=== PATIENT | female | born 1950 | race Caucasian/White ===

== ENCOUNTER 2016-10-08 16:19 | Emergency (ER) | payer MEDICARE, OTHER ==
[2016-10-08] MEDS ORDERED: ONDANSETRON HCL INJ/PF 4 MG/2 ML SDV IV ONE (17:27)
--- NOTE | 2016-10-08 17:30 | ER Document Report ---
ED Medical Screen (RME) - General Chief Complaint: Abdominal Pain Stated Complaint: ABDOMINAL PAIN Time Seen by Provider: 10/08/16 17:03 Mode of Arrival: Ambulatory Information source: Patient Notes: 66-year-old female presents with complaints of nausea vomiting dark stools. Patient denies any fevers or chills admits Patient's hemoglobin is 8.9 when checked by primary care physician, she is supposed to have an EGD performed I have greeted and performed a rapid initial assessment of this patient. A comprehensive ED assessment and evaluation of the patient, analysis of test results and completion of the medical decision making process will be conducted by additional ED providers. PHYSICAL EXAMINATION: GENERAL: Well-appearing, well-nourished and in no acute distress. HEAD: Atraumatic, normocephalic. EYES: Pupils equal round extraocular movements intact, conjunctiva are normal. ENT: Nares patent NECK: Normal range of motion LUNGS: No respiratory distress Musculoskeletal: Normal range of motion NEUROLOGICAL: Normal speech, normal gait. PSYCH: Normal mood, normal affect. SKIN: Warm, Dry, normal turgor, no rashes or lesions noted. TRAVEL OUTSIDE OF THE [place] IN LAST 30 DAYS: No - Related Data Allergies/Adverse Reactions: iv contrast Allergy (Uncoded 10/08/16 17:02) Past Medical History - Social History Chew tobacco use (# tins/day): No Frequency of alcohol use: None Drug Abuse: None Renal/ Medical History: Denies: Hx Peritoneal Dialysis Musculoskeltal Medical History: Reports Hx Arthritis Past Surgical History: Reports: Hx Abdominal Surgery - gastric bypass, Hx Cholecystectomy, Hx Hysterectomy, Hx Orthopedic Surgery Physical Exam - Vital signs Vitals: Temp Pulse Resp BP Pulse Ox 99 F 82 18 132/69 H 99 10/08/16 16:54 10/08/16 16:54 10/08/16 16:54 10/08/16 16:54 10/08/16 16:54 Course - Vital Signs Vital signs: Temp Pulse Resp BP Pulse Ox 99 F 82 18 132/69 H 99 10/08/16 16:54 10/08/16 16:54 10/08/16 16:54 10/08/16 16:54 10/08/16 16:54
[2016-10-08] MEDS ORDERED: NORMAL SALINE 1000 ML 1,000 ML IV ONE (18:33)
[2016-10-08] MEDS ORDERED: KETOROLAC TROMETHAMINE INJ/PF 30 MG/1 ML SDV IV ONE (18:33)
[2016-10-08 18:45] LABS: ABSOLUTE BASOPHILS # (AUTO) 0.1 10^3/uL (0.0-0.2); ABSOLUTE EOSINOPHILS # (AUTO) 0.2 10^3/uL (0.0-0.6); ABSOLUTE LYMPHOCYTES (AUTO) 1.7 10^3/uL (0.5-4.7); ABSOLUTE MONOCYTES (AUTO) 0.4 10^3/uL (0.1-1.4); ABSOLUTE NEUT (AUTO) 4.8 10^3/uL (1.7-8.2); BASOPHILS % (AUTO) 0.9 % (0-2); EOSINOPHILS % (AUTO) 2.7 % (0-6); HEMATOCRIT 27.1 % (36.0-47.0); HEMOGLOBIN 8.5 g/dL (12.0-15.5); HGB HCT DIFFERENCE -1.6; LYMPHOCYTES % (AUTO) 23.2 % (13-45); MEAN CORPUSCULAR HEMOGLOBIN 22.4 pg (27.0-33.4); MEAN CORPUSCULAR HGB CONC 31.2 g/dL (32.0-36.0); MEAN CORPUSCULAR VOLUME 72 fl (80-97); RED BLOOD COUNT 3.78 10^6/uL (3.72-5.28); RED CELL DISTRIBUTION WIDTH 17.1 % (11.5-14.0); SEGMENTED NEUTROPHILS % (AUTO) 67.2 % (42-78); WHITE BLOOD COUNT 7.2 10^3/uL (4.0-10.5)
[2016-10-08 19:03] LABS: ALANINE AMINOTRANSFERASE 29 U/L (9-52); ALBUMIN 3.6 g/dL (3.5-5.0); ALKALINE PHOSPHATASE 100 U/L (38-126); ANION GAP 6 (5-19); ASPARTATE AMINO TRANSFERASE 32 U/L (14-36); BILIRUBIN,DIRECT 0.3 mg/dL (0.0-0.4); BILIRUBIN,TOTAL 0.4 mg/dL (0.2-1.3); BLOOD UREA NITROGEN 8 mg/dL (7-20); CALCIUM 9.5 mg/dL (8.4-10.2); CARBON DIOXIDE 26 mmol/L (22-30); CHLORIDE 102 mmol/L (98-107); CREATININE RESULT 0.64 mg/dL (0.52-1.25); GLUCOSE 95 mg/dL (75-110); LIPASE 86.6 U/L (23-300); POTASSIUM 4.2 mmol/L (3.6-5.0); SODIUM 134.3 mmol/L (137-145); TOTAL PROTEIN 6.3 g/dL (6.3-8.2)
[2016-10-08] MEDS ORDERED: PANTOPRAZOLE SODIUM 40 MG VIAL IV ONE (19:13)
--- NOTE | 2016-10-08 19:16 | ER Document Report ---
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 She states several years ago she did have a spontaneous arterial bleed at the site of the anastomosis at which time she was apparently from this event. She recently moved to the area and did see her primary care doctor Dr. Villavicencio on the of this month as well as a GI physician regarding these concerns. She has not yet been able be scheduled for an endoscopy. At time of assessment she states that she has a severe, constant, throbbing pain to the epigastrium right upper quadrant. She states eating or drinking significantly worsens the pain and she is unable to tolerate oral intake at this time secondary to the pain associated with this action. Nothing improves her symptoms. States that her stools oscillate between melena and pale stools. She has not had any hematemesis. She denies any fever. TRAVEL OUTSIDE OF THE [place] IN LAST 30 DAYS: No - Related Data Allergies/Adverse Reactions: iv contrast Allergy (Uncoded 10/08/16 17:02) Past Medical History - General Information source: Patient - Social History Smoking Status: Never Smoker Chew tobacco use (# tins/day): No Frequency of alcohol use: None Drug Abuse: None Lives with: Family Family History: Reviewed & Not Pertinent Patient has suicidal ideation: No Patient has homicidal ideation: No Renal/ Medical History: Denies: Hx Peritoneal Dialysis Musculoskeltal Medical History: Reports Hx Arthritis Past Surgical History: Reports: Hx Abdominal Surgery - gastric bypass, Hx Cholecystectomy, Hx Hysterectomy, Hx Orthopedic Surgery Review of Systems - Review of Systems Notes: Constitutional: Negative for fever. HENT: Negative for sore throat. Eyes: Negative for visual changes. Cardiovascular: Negative for chest pain. Respiratory: Negative for shortness of breath. Gastrointestinal: Positive for abdominal pain Genitourinary: Negative for dysuria. Musculoskeletal: Negative for back pain. Skin: Negative for rash. Neurological: Negative for headaches, weakness or numbness. 10 point ROS negative except as marked above and in HPI. Physical Exam - Vital signs Vitals: Temp Pulse Resp BP Pulse Ox 99 F 82 18 132/69 H 99 10/08/16 16:54 10/08/16 16:54 10/08/16 16:54 10/08/16 16:54 10/08/16 16:54 Interpretation: Normal Notes: PHYSICAL EXAMINATION: GENERAL: Appears somewhat malnourished, in moderate discomfort in no acute distress HEAD: Atraumatic, normocephalic. EYES: Pupils equal round and reactive to light, extraocular movements intact, sclera anicteric, conjunctiva are normal. ENT: nares patent, oropharynx clear without exudates. Moderately dry mucous membranes. NECK: Normal range of motion, supple without lymphadenopathy LUNGS: Breath sounds clear to auscultation bilaterally and equal. No wheezes rales or rhonchi. HEART: Regular rate and rhythm without murmurs ABDOMEN: Soft, mild tenderness to the epigastrium and right upper quadrant to palpation. No rebound or guarding. Negative Magallanes sign. Otherwise no focal tenderness. EXTREMITIES: Normal range of motion, no pitting or edema. No cyanosis. NEUROLOGICAL: No focal neurological deficits. Moves all extremities spontaneously and on command. PSYCH: Anxious, intermittently tearful. Appropriate. SKIN: Warm, Dry, normal turgor, no rashes or lesions noted. Course - Re-evaluation Re-evalutation: 10/08/16 19:15 Patient with a history of recurrent anastomotic ulcers after a gastric bypass surgery presents with melanotic stools interchanged with pale stools and a decreasing hemoglobin over the last several weeks. Hemoglobin in office on was 8.9 and has dropped to 8.5 today. Patient's baseline hemoglobin is typically around 11. She has a history of an arterial bleed at the anastomosis in the past. Her vitals are within normal limits at time of presentation. Her abdominal exam does show right upper quadrant epigastric abdominal tenderness no rebound or guarding. She does appear mildly dehydrated on examination. We do not have any GI coverage at this time nor for the remainder of September and she will require transfer for endoscopy as she is having a falling hemoglobin and has a complicated history with a gastric bypass with recurrent bleeds. I do not believe she would be safe for discharge given her decreasing hemoglobin and increasing abdominal pain as well as inability to tolerate oral intake. Will provide IV fluids, analgesia, antiemetics, and plan for transfer. 10/08/16 20:50 I have had a conversation with the accepting physician at [facility] Dr. Donovan Senior. We have discussed that although it does not appear that the patient is having a brisk upper GI bleed given that she is guaiac negative stools at this time and has not had any hematemesis, her hemoglobin is down trending and was noted to be normal in April of this year. Patient continues to have epigastric and right upper quadrant abdominal tenderness on examination but no rebound or guarding. Her vitals remain within normal limits. Her MCV does suggest acute blood loss anemia. I again reviewed the patient states she is unable to tolerate oral intake secondary to severe pain with eating or drinking and that she does have mild hyponatremia but her vitals do not suggest a severe dehydration. After reviewing this he was willing to accept patient for dehydration and dysphasia. 10/09/16 02:19 Patient has remained hemodynamically within normal limits. She continues depending to transfer to [facility]. She is continued to be n.p.o. here in the emergency department has not expressed any desire to eat or drink anything. - Vital Signs Vital signs: Temp Pulse Resp BP Pulse Ox 99.1 F 74 16 109/63 96 10/09/16 01:21 10/09/16 01:21 10/09/16 01:21 10/09/16 01:21 10/09/16 01:21 - Laboratory Result Diagrams: 10/08/16 18:20 10/08/16 18:20 Laboratory results interpreted by me: 10/08/16 10/08/16 10/08/16 18:20 18:20 19:24 Hgb 8.5 L Hct 27.1 L MCV 72 L MCH 22.4 L MCHC 31.2 L RDW 17.1 H Sodium 134.3 L Urine Ascorbic Acid 20 H Discharge - Discharge Clinical Impression: Blood loss anemia, Epigastric abdominal pain Condition: Fair Disposition: [facility]
[2016-10-08 19:51] LABS: APPEARANCE,URINE SLIGHTLY-CLOUDY; BILIRUBIN,URINE NEGATIVE (NEGATIVE); GLUCOSE, URINE NEGATIVE (NEGATIVE); KETONES,URINE NEGATIVE (NEGATIVE); LEUKOCYTE ESTERASE,URINE NEGATIVE (NEGATIVE); NITRITE,URINE NEGATIVE (NEGATIVE); PROTEIN,URINE NEGATIVE (NEGATIVE); URINE SPECIFIC GRAVITY 1.006; UROBILINOGEN,URINE NEGATIVE mg/dL (<2.0)
[2016-10-08] MEDS: MORPHINE SULFATE 10 MG/ML INJ IV PRN ×2 (19:59→21:59)
[2016-10-08] MEDS: PANTOPRAZOLE SODIUM 40 MG VIAL IV PRN (20:00)
[2016-10-08] MEDS ORDERED: DIPHENHYDRAMINE HCL 50 MG/ML VIAL ONE (22:58)
[2016-10-09] MEDS ORDERED: ONDANSETRON HCL INJ/PF 4 MG/2 ML SDV IV ONE ×3 (00:44→08:43)
[2016-10-09] MEDS: MORPHINE SULFATE 10 MG/ML INJ IV PRN ×3 (01:13→09:38)
[2016-10-09] MEDS: PANTOPRAZOLE SODIUM 40 MG VIAL IV PRN (05:02)
[2016-10-09] MEDS ORDERED: DIPHENHYDRAMINE HCL 50 MG/ML VIAL IV ONE ×2 (05:28→09:33)
[2016-10-09 09:47] VITALS: BP 125/73
== END 2016-10-09 09:49 | disposition short-term general hospital (02) ==
LOC: ER 16:19
DX: D50.0 Iron deficiency anemia secondary to blood loss (chronic) (principal); R10.13 Epigastric pain; R10.9 Unspecified abdominal pain
CPT/HCPCS: 96376; 99285; 96361; 96374; 96375; 36415; 83690; 85025; 82272; 80053; 81001; J1200 ×2; J2270 ×2; C9113 ×2; J2405 ×2; J7030; S0164

== ENCOUNTER 2017-04-30 11:01 | Emergency (ER) | payer MEDICARE, OTHER ==
[2017-04-30] MEDS ORDERED: NORMAL SALINE 1000 ML 1,000 ML IV ONE ×2 (11:25→14:22)
--- NOTE | 2017-04-30 11:25 | ER Document Report ---
ED Medical Screen (RME) - General Chief Complaint: Flank Pain Stated Complaint: ABDOMINAL PAIN Time Seen by Provider: 04/30/17 11:21 Mode of Arrival: Ambulatory Information source: Patient Notes: Patient is a 67 year old female with a history of GI problems presents to the emergency department complaining of multiple symptoms including bilateral flank pain and abdominal pain onset last night. Patient states she saw her pcp this morning due to her symptoms and was sent here for further workup. At her PCP the patients urine tested positive for leukocytes. Patient states she has had similar pain a year ago and was transferred due to a GI bleed. Patient states her abdominal pain is a 5/5. Patients associated symptoms include nausea, headaches, neck pain and burning urination. Patient states her last bowel moment was 2 days ago and normal. Patient denies hematuria. GENERAL: Alert, interacts well. No acute distress. HEAD: Normocephalic, Atraumatic. NECK: Full range of motion. Supple. Trachea midline. LUNGS: Clear to auscultation bilaterally, no wheezes, rales, or rhonchi. No respiratory distress. HEART: Regular rate and rhythm. No murmurs, gallops, or rubs. ABDOMEN: Soft, tender in the epigastric and upper quadrant area, non tender in the lower quadrants. Non-distended. EXTREMITIES: Moves all four extremities spontaneously. PSYCH: Normal affect, normal mood. I have greeted and performed a rapid initial assessment of this patient. A comprehensive ED assessment and evaluation of the patient, analysis of test results and completion of the medical decision making process will be conducted by additional ED providers. TRAVEL OUTSIDE OF THE [place] IN LAST 30 DAYS: No - Related Data Allergies/Adverse Reactions: iv contrast Allergy (Uncoded 04/30/17 11:08) Past Medical History - Social History Chew tobacco use (# tins/day): No Frequency of alcohol use: None Drug Abuse: None Renal/ Medical History: Denies: Hx Peritoneal Dialysis Musculoskeltal Medical History: Reports Hx Arthritis Past Surgical History: Reports: Hx Abdominal Surgery - gastric bypass, Hx Cholecystectomy, Hx Hysterectomy, Hx Orthopedic Surgery Physical Exam - Vital signs Vitals: Temp Pulse Resp BP Pulse Ox 98.6 F 86 18 120/60 97 04/30/17 11:10 04/30/17 11:10 04/30/17 11:10 04/30/17 11:10 04/30/17 11:10 Course - Vital Signs Vital signs: Temp Pulse Resp BP Pulse Ox 98.6 F 86 18 120/60 97 04/30/17 11:10 04/30/17 11:10 04/30/17 11:10 04/30/17 11:10 04/30/17 11:10 Scribe Documentation - Scribe Written by Gabby:: Gabby Brewer, 04/30/2017 11:34 acting as scribe for :: Wilber
[2017-04-30] MEDS ORDERED: FENTANYL CITRATE INJ/PF 100 MCG/2 ML AMPUL IV ONE ×3 (11:27→18:50)
[2017-04-30 12:04] LABS: APPEARANCE,URINE SLIGHTLY-CLOUDY; BILIRUBIN,URINE NEGATIVE (NEGATIVE); COLOR,URINE YELLOW; GLUCOSE, URINE NEGATIVE (NEGATIVE); KETONES,URINE NEGATIVE (NEGATIVE); LEUKOCYTE ESTERASE,URINE TRACE (NEGATIVE); NITRITE,URINE NEGATIVE (NEGATIVE); PROTEIN,URINE NEGATIVE (NEGATIVE); URINE SPECIFIC GRAVITY 1.012
[2017-04-30] MEDS ORDERED: ONDANSETRON HCL INJ/PF 4 MG/2 ML SDV IV ONE ×2 (12:11→14:47)
[2017-04-30 12:12] LABS: ABSOLUTE LYMPHOCYTES (AUTO) 0.8 10^3/uL (0.5-4.7); ABSOLUTE MONOCYTES (AUTO) 0.3 10^3/uL (0.1-1.4); ABSOLUTE NEUT (AUTO) 1.9 10^3/uL (1.7-8.2); BASOPHILS % (AUTO) 0.9 % (0-2); EOSINOPHILS % (AUTO) 1.3 % (0-6); HEMATOCRIT 41.9 % (36.0-47.0); HEMOGLOBIN 13.8 g/dL (12.0-15.5); LYMPHOCYTES % (AUTO) 25.1 % (13-45); MEAN CORPUSCULAR HEMOGLOBIN 30.3 pg (27.0-33.4); MEAN CORPUSCULAR VOLUME 92 fl (80-97); MONOCYTES % (AUTO) 10.5 % (3-13); PLATELET COUNT 180 10^3/uL (150-450); RED BLOOD COUNT 4.56 10^6/uL (3.72-5.28); RED CELL DISTRIBUTION WIDTH 13.4 % (11.5-14.0); SEGMENTED NEUTROPHILS % (AUTO) 62.2 % (42-78); TOTAL CELLS COUNTED % (AUTO) 100 %; WHITE BLOOD COUNT 3.1 10^3/uL (4.0-10.5)
[2017-04-30 12:29] LABS: ALANINE AMINOTRANSFERASE 668 U/L (9-52); ALBUMIN 3.9 g/dL (3.5-5.0); ALKALINE PHOSPHATASE 203 U/L (38-126); ANION GAP 8 (5-19); ASPARTATE AMINO TRANSFERASE 712 U/L (14-36); BILIRUBIN,DIRECT 0.3 mg/dL (0.0-0.4); BILIRUBIN,TOTAL 0.3 mg/dL (0.2-1.3); BLOOD UREA NITROGEN 13 mg/dL (7-20); CALCIUM 10.2 mg/dL (8.4-10.2); CARBON DIOXIDE 28 mmol/L (22-30); CHLORIDE 98 mmol/L (98-107); GLUCOSE 102 mg/dL (75-110); POTASSIUM 4.2 mmol/L (3.6-5.0); SODIUM 134.2 mmol/L (137-145); TOTAL PROTEIN 6.2 g/dL (6.3-8.2)
[2017-04-30] MEDS ORDERED: METHYLPREDNISOLONE INJ 125 MG/2 ML SDV IV ONE (13:19)
[2017-04-30] MEDS ORDERED: DIPHENHYDRAMINE HCL 50 MG/ML VIAL IV ONE (13:19)
--- NOTE | 2017-04-30 13:55 | ER Document Report ---
ED GI/ - General Chief Complaint: Flank Pain Stated Complaint: ABDOMINAL PAIN Time Seen by Provider: 04/30/17 11:21 Mode of Arrival: Ambulatory Information source: Patient Notes: 67 yo female c/o upper abdominal pain, mostly left side when palapated but felt like on the right when walked into right flank. Started yesterday but a few twinges past week, worse throughout the night. Extreme nausea. No fever or chills. Dr Baxter office sent her here. Abd. surgeries: gastric bypass 1999, sphincterotomyi Giuseppe- 2001 [facility] (liver enzymes went up at the time). This pain is similar but quicker onset as last year, HIda Scan showed ductal blockage, CBD opened up on its own (was told not candidate for ductal bypass due to gastric bypass)- [facility]. September 2016-CBD closed again -dr. rudolph [facility] when she had pain and bleeding, choledocal cyst, but opened spontaneously, no percutaneous drainage needed. Cholecystectomy 1975. . Last po' s oatmeal 4:30 am. TRAVEL OUTSIDE OF THE [place] IN LAST 30 DAYS: No - Related Data Allergies/Adverse Reactions: iv contrast Allergy (Uncoded 04/30/17 11:08) Past Medical History - General Information source: Patient - Social History Smoking Status: Never Smoker Chew tobacco use (# tins/day): No Frequency of alcohol use: None Drug Abuse: None Lives with: Spouse/Significant other Family History: Reviewed & Not Pertinent Patient has suicidal ideation: No Patient has homicidal ideation: No Renal/ Medical History: Denies: Hx Peritoneal Dialysis Musculoskeltal Medical History: Reports Hx Arthritis Past Surgical History: Reports: Hx Abdominal Surgery - gastric bypass, Hx Cholecystectomy, Hx Hysterectomy, Hx Orthopedic Surgery, Other - sphincterotomy- Giuseppe Review of Systems - Review of Systems Constitutional: No symptoms reported EENT: No symptoms reported Cardiovascular: No symptoms reported Respiratory: No symptoms reported Gastrointestinal: See HPI Genitourinary: No symptoms reported Female Genitourinary: No symptoms reported Musculoskeletal: No symptoms reported Skin: No symptoms reported Hematologic/Lymphatic: No symptoms reported Neurological/Psychological: No symptoms reported Physical Exam - Vital signs Vitals: Temp Pulse Resp BP Pulse Ox 98.6 F 86 18 120/60 97 04/30/17 11:10 04/30/17 11:10 04/30/17 11:10 04/30/17 11:10 04/30/17 11:10 Interpretation: Normal - General General appearance: Appears well, Alert In distress: None - HEENT Head: Normocephalic, Atraumatic Eyes: Normal Conjunctiva: Normal. No: Icteric Pupils: PERRL Tympanic membrane: Normal Pharynx: Normal Neck: Supple. No: Lymphadenopathy - Respiratory Respiratory status: No respiratory distress Chest status: Nontender Breath sounds: Normal Chest palpation: Normal - Cardiovascular Rhythm: Regular Heart sounds: Normal auscultation Murmur: No - Abdominal Inspection: Normal Distension: No distension Bowel sounds: Normal Tenderness: Tender Organomegaly: No organomegaly. No: Hepatomegaly, Splenomegaly - all the way across the upper abdomen - Back Back: Normal, CVA tenderness - mild right - Extremities General upper extremity: Normal inspection, Nontender, Normal color, Normal ROM , Normal temperature General lower extremity: Normal inspection, Nontender, Normal color, Normal ROM , Normal temperature, Normal weight bearing. No: Judy's sign - Neurological Neuro grossly intact: Yes Cognition: Normal Orientation: AAOx4 [place] Coma Scale Eye Opening: Spontaneous [place] Coma Scale Verbal: Oriented [place] Coma Scale Motor: Obeys Commands [place] Coma Scale Total: 15 Speech: Normal Motor strength normal: LUE, RUE, LLE, RLE Sensory: Normal - Psychological Associated symptoms: Normal affect, Normal mood - Skin Skin Temperature: Warm Skin Moisture: Dry Skin Color: Normal Skin irregularity: negative: Rash Course - Re-evaluation Re-evalutation: 04/30/17 15:40 liver enzymes elevated , lipase normal, 1+ bacteria in urine, few white cells, rocephin [address] hughes, he rec. to Call to [facility] transfer line, Dr Bray/Dariela 04/30/17 15:48 pt asking for pain medication, fentanyl worked better than the morphine. Dr. Trevino [facility] will accept the pt. to surgical bed. Will double check with dr. Gee to see if she can stay at [place] as the pt does not really want to go down to [place]. 04/30/17 16:50 Dr. 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 I will explain this to the pt. she is willing to go to [facility] via transport. 04/30/17 16:55 called transfer center back , no bed assignment yet. 04/30/17 17:35 will be going to room 236, [place] will send truck. Told pt, no pain rx needed now. 04/30/17 19:21 Patient is pain-free they are here to take her to [facility] the vitals are stable and she is on the transport stretcher. - Vital Signs Vital signs: Temp Pulse Resp BP Pulse Ox 99.1 F 75 20 110/49 L 95 04/30/17 18:55 04/30/17 18:55 04/30/17 18:55 04/30/17 18:55 04/30/17 18:55 - Laboratory Result Diagrams: 04/30/17 11:55 04/30/17 11:55 Laboratory results interpreted by me: 04/30/17 04/30/17 04/30/17 11:15 11:55 11:55 WBC 3.1 L Sodium 134.2 L AST 712 H ALT 668 H Alkaline Phosphatase 203 H Total Protein 6.2 L Urine Urobilinogen 2.0 H Ur Leukocyte Esterase TRACE H Urine Ascorbic Acid 40 H Discharge - Discharge Clinical Impression: Right flank pain, Upper abdominal pain, Liver enzyme elevation Condition: Stable Disposition: [facility] Referrals: JACKIE SARMIENTO MD [Primary Care Provider] - Follow up as needed
[2017-04-30] MEDS ORDERED: MORPHINE SULFATE 10 MG/ML INJ IV ONE (14:22)
--- NOTE | 2017-04-30 14:22 | RADIOLOGY REPORT (SQ) ---
EXAM DESCRIPTION: CHEST PA/LAT COMPLETED DATE/TIME: 04/30/2017 1:55 pm REASON FOR STUDY: cough/congestion COMPARISON: None. EXAM PARAMETERS: NUMBER OF VIEWS: two views TECHNIQUE: Digital Frontal and Lateral radiographic views of the chest acquired. RADIATION DOSE: NA LIMITATIONS: none FINDINGS: LUNGS AND PLEURA: There is mild hyperexpansion of the lungs with no infiltrate or effusion . There is no mass. MEDIASTINUM AND HILAR STRUCTURES: No masses or contour abnormalities. HEART AND VASCULAR STRUCTURES: Heart normal size. No evidence for failure. BONES: No acute findings. HARDWARE: None in the chest. OTHER: No other significant finding. IMPRESSION: Mild chronic lung changes with no acute cardiopulmonary disease. TECHNICAL DOCUMENTATION: JOB ID: [id number]- All Rights Reserved Reading location - IP/workstation name: [email or web address]
--- NOTE | 2017-04-30 14:32 | RADIOLOGY REPORT (SQ) ---
EXAM DESCRIPTION: CT ABD/PELVIS WITH IV ONLY COMPLETED DATE/TIME: 04/30/2017 2:17 pm REASON FOR STUDY: flank/epigastric pain COMPARISON: None. TECHNIQUE: CT scan of the abdomen and pelvis performed using helical scanning technique with dynamic intravenous contrast injection. No oral contrast. Images reviewed with lung, soft tissue, and bone windows. Reconstructed coronal and sagittal MPR images reviewed. Delayed images for evaluation of the urinary system also acquired. All images stored on PACS. All CT scanners at this facility use dose modulation, iterative reconstruction, and/or weight based d osing when appropriate to reduce radiation dose to as low as reasonably achievable (ALARA). [facility]: Dose Right [facility]: CareDose [facility]: Dose Right [facility]: Teradose 4D [facility]: [employer]oft CONTRAST TYPE AND DOSE: contrast/concentration: Isovue 370.00 mg/ml; Total Contrast Delivered: 68.0 ml; Total Saline Delivered: 65.0 ml RENAL FUNCTION: BUN 13 creatinine 0.76 RADIATION DOSE: CT Rad equipment meets quality standard of care and radiation dose reduction techniq ues were employed. CTDIvol: 5.7 - 7.4 mGy. DLP: 654 mGy-cm.. LIMITATIONS: None. FINDINGS: LOWER CHEST: No significant findings. No nodules or infiltrates. LIVER: Normal size. No masses. Central hepatic and common bile ductal prominence. SPLEEN: Normal size. No focal lesions. PANCREAS: No masses. No significant calcifications. No adjacent inflammation or peripancreatic fluid collections. Pancreatic duct not dilated. GALLBLADDER: Surgically absent. ADRENAL GLANDS: No significant masses or asymmetry. RIGHT KIDNEY AND URETER: No solid masses. No significant calcifications. No hydronephrosis or hyd roureter. LEFT KIDNEY AND URETER: No solid masses. No significant calcifications. No hydronephrosis or hydr oureter. AORTA AND VESSELS: No aneurysm. No dissection. Renal arteries, SMA, celiac without stenosis. RETROPERITONEUM: No retroperitoneal adenopathy, hemorrhage or masses. BOWEL AND PERITONEAL CAVITY: Surgical suture is present in the stomach. No bowel masses are seen. T here is considerable large bowel gas and some some small bowel gas. There is large amount of stool i n the rectum. APPENDIX: Not identified. No pericecal inflammatory changes are seen. PELVIS: Urinary bladder is normal. Uterus is absent. ABDOMINAL WALL: No masses. No hernias. BONES: No significant or acute findings. OTHER: No other significant finding. IMPRESSION: 1. Prominence of the bile ducts likely secondary to the cholecystectomy. 2. Possible constipation. TECHNICAL DOCUMENTATION: JOB ID: [id number] Quality ID # [id number]: Final reports with documentation of one or more dose reduction techniques (e.g., Au tomated exposure control, adjustment of the mA and/or kV according to patient size, use of iterative reconstruction technique) 2010 [employer]- All Rights Reserved Reading location - IP/workstation name: [email or web address]
[2017-04-30] MEDS ORDERED: CEFTRIAXONE INJ 1000 MG VIAL IV ONE (15:13)
[2017-04-30 18:57] VITALS: BP 110/49
== END 2017-04-30 19:14 | disposition short-term general hospital (02) ==
LOC: ER 11:01
DX: R10.9 Unspecified abdominal pain (principal); R10.10 Upper abdominal pain, unspecified; R74.8 Abnormal levels of other serum enzymes; R11.0 Nausea; Z98.84 Bariatric surgery status; Z90.49 Acquired absence of other specified parts of digestive tract
CPT/HCPCS: 96376; 99285; 96361; 96375; 96365; 36415; 87086; 83690; 85025; 87088; 80053; 81001; 87186; 71046; 74177; J1200; J3010; J2930; J2270; J0696; J2405; J7030

== ENCOUNTER 2018-01-25 01:03 | Emergency (ER) | payer OTHER, MEDICARE ==
[2018-01-25 01:10] VITALS: BP 149/89
--- NOTE | 2018-01-25 01:38 | ER Document Report ---
ED Fall - General Chief Complaint: Knee Pain Stated Complaint: FALL Time Seen by Provider: 01/25/18 01:18 Notes: Patient is a 67-year-old female that comes to the [facility] for chief complaint of a fall. She was at work, she states that she tripped on a electrical cord attached to a nearby machine which caused her to fall forwards, she landed on both knees and also hit her head on the ground causing swelling and bruising to the right side of her face just above her right eye. She states that she was dazed but she did not pass out, she denies vomiting, she states that she has had some trouble with word finding since the injury however. Injury happened this evening. She is not on a blood thinner. She does have a history of knee surgery, she reports pain in both knees over the front. She also admits to pain in her neck, right shoulder, and mildly in her lower incontinence, numbness , visual loss. She denies any other complaints including chest pain, abdominal pain, hip pain. TRAVEL OUTSIDE OF THE [place] IN LAST 30 DAYS: No - Related data Allergies/Adverse Reactions: iv contrast Allergy (Uncoded 04/30/17 11:08) Past Medical History - General Information source: Patient - Social History Smoking Status: Never Smoker Frequency of alcohol use: None Drug Abuse: None Lives with: Spouse/Significant other Family History: Reviewed & Not Pertinent Renal/ Medical History: Denies: Hx Peritoneal Dialysis Musculoskeletal Medical History: Reports Hx Arthritis Past Surgical History: Reports: Hx Abdominal Surgery - gastric bypass, Hx Cholecystectomy, Hx Hysterectomy, Hx Orthopedic Surgery, Other - sphincterotomy- Giuseppe Review of Systems - Review of Systems Constitutional: No symptoms reported EENT: No symptoms reported Cardiovascular: No symptoms reported Respiratory: No symptoms reported Gastrointestinal: No symptoms reported Genitourinary: No symptoms reported Female Genitourinary: No symptoms reported Musculoskeletal: See HPI Skin: See HPI Hematologic/Lymphatic: No symptoms reported Neurological/Psychological: See HPI Physical Exam - Vital signs Vitals: Temp Pulse Resp BP Pulse Ox 99.3 F 100 17 149/89 H 98 01/25/18 01:07 01/25/18 01:07 01/25/18 01:07 01/25/18 01:07 01/25/18 01:07 - Notes Notes: GENERAL: Alert, interacts well. No acute distress. HEAD: Normocephalic. Swelling at the right eyebrow and minimally over the right upper eyelid with ecchymosis. No open wounds. No other signs of trauma over the head. EYES: Pupils equal, round, and reactive to light. Extraocular movements intact. ENT: Oral mucosa moist, tongue midline. Oropharynx unremarkable. Airway patent. Nares patent, no nasal septal hematoma, TM's intact. NECK: Full range of motion. Supple. Trachea midline. LUNGS: Clear to auscultation bilaterally, no wheezes, rales, or rhonchi. No respiratory distress. HEART: Regular rate and rhythm. No murmur ABDOMEN: Soft, non-tender. Non-distended. Bowel sounds present in all 4 quadrants. GENITOURINARY: Deferred EXTREMITIES: Moves all 4 extremities spontaneously. No edema, normal radial and dorsalis pedis pulses bilaterally. No cyanosis. Tenderness over the anterior tibia bilaterally, no bruising, no swelling, range of motion intact, ambulates without difficulty. Tenderness over the right humeral head area, range of motion intact, no ecchymosis or swelling. Small amount of bruising over the right thenar area but no point tenderness, full range of motion, no snuffbox tenderness. BACK: Tenderness with palpation over the general cervical area, range of motion intact. Tenderness over the lumbar area generally, no bruising or swelling noted, no saddle anesthesia, back exam unremarkable otherwise. NEUROLOGICAL: Alert and oriented x3. Normal speech. [cranial nerves II through XII grossly intact]. PSYCH: Normal affect, normal mood. SKIN: Warm, dry, normal turgor. No rashes or lesions noted. Course - Re-evaluation Re-evalutation: Because of patient's reported struggle getting her words out, her obvious facial hematoma, and her age of greater than 65 a CAT scan of the head was performed. This shows no acute etiology. Imaging including the neck, lumbar spine, shoulder, and knees showing osteopenia and arthritis with no acute abnormality. Patient is neurologically intact on evaluation and reevaluation. Discussed results with patient in detail. Provide with work-release, discussed precautions, expectations, follow-up, and return precautions in detail. Patient states understanding and agreement. Patient has a ride home. - Vital Signs Vital signs: Temp Pulse Resp BP Pulse Ox 99.3 F 100 17 149/89 H 98 01/25/18 01:07 01/25/18 01:07 01/25/18 01:07 01/25/18 01:07 01/25/18 01:07 Discharge - Discharge Clinical Impression: Neck pain Head injury Qualifiers: Encounter type: initial encounter Qualified Code(s): S09.90XA - Unspecified injury of head, initial encounter Traumatic hematoma of face Qualifiers: Encounter type: initial encounter Qualified Code(s): S00.83XA - Contusion of other part of head, initial encounter Knee pain Qualifiers: Chronicity: acute Laterality: bilateral Qualified Code(s): M25.561 - Pain in right knee Back pain Qualifiers: Back pain location: low back pain Chronicity: acute Back pain laterality: bilateral Sciatica presence: without sciatica Qualified Code(s): M54.5 - Low back pain Right shoulder pain Qualifiers: Chronicity: acute Qualified Code(s): M25.511 - Pain in right shoulder Condition: Stable Disposition: HOME, SELF-CARE Additional Instructions: The CAT scan of your head and neck did not show any new concerning findings. The hematoma will resolve with time, you can ice this. He will likely have postconcussive symptoms including difficulty focusing, headaches, vague nausea. Avoid driving if you have dizziness until this resolves. Rest and sleep should help you recover faster from the postconcussive symptoms. Follow-up closely with primary care for additional evaluation and management. No fractures are seen on the x-rays of your shoulder, knees, back. No concerning new abnormalities noted otherwise, you have osteopenia and arthritis. He will likely be very sore, ice, rest, elevate. Return to the emergency department for any concerning symptoms including vomiting, confusion, seizure, unequal pupils. Recommendation is to have someone check on you every few hours especially the first day. Forms: Return to Work Referrals: JACKIE SARMIENTO MD [NO LOCAL MD] - Follow up as needed
--- NOTE | 2018-01-25 02:29 | RADIOLOGY REPORT (SQ) ---
EXAM DESCRIPTION: XR SHOULDER 2 OR MORE VIEWS COMPLETED DATE/TME: 01/25/2018 01:30 CLINICAL HISTORY: 67 years, Female, fall, pain COMPARISON: None. NUMBER OF VIEWS: 3 TECHNIQUE: 3 view right shoulder LIMITATIONS: None. FINDINGS: Osteopenia. Negative for acute fracture or dislocation. Mild degenerative changes. Soft tissues are unremarkable IMPRESSION: Osteopenia with mild degenerative change copyright 2010 [employer]- All Rights Reserved
[2018-01-25] MEDS ORDERED: HYDROCODONE/ACETAMINOPHEN 5-325 MG TABLET PO ONE (02:43)
[2018-01-25] MEDS ORDERED: ONDANSETRON 4 MG TAB.RAPDIS PO ONE (02:43)
--- NOTE | 2018-01-25 02:43 | RADIOLOGY REPORT (SQ) ---
EXAM DESCRIPTION: XR KNEE 1-2 VIEWS BILATERAL COMPLETED DATE/TME: 01/25/2018 01:30 CLINICAL HISTORY: 67 years, Female, fall, pain COMPARISON: None. NUMBER OF VIEWS: 4 TECHNIQUE: 2 views of each knee LIMITATIONS: None. FINDINGS: Osteopenia. Degenerative changes of the knees bilaterally. Negative for acute fracture or dislocation. No radiographic evidence for joint effusion. IMPRESSION: Osteopenia with degenerative change bilaterally copyright 2010 [email or web address]- All Rights Reserved
--- NOTE | 2018-01-25 02:44 | RADIOLOGY REPORT (SQ) ---
EXAM DESCRIPTION: XR LUMBAR SPINE ANTEROPOSTERIOR, LATERAL, AND OBLIQUES COMPLETED DATE/TME: 01/25/2018 01:30 CLINICAL HISTORY: 67 years, Female, fall, pain COMPARISON: None. NUMBER OF VIEWS: 5 views of the lumbar spine TECHNIQUE: 5 views of the lumbar spine LIMITATIONS: None. FINDINGS: Osteopenia. The inferior vena cava filter noted. Surgical clips in the upper abdomen. 5 lumbar type vertebral bodies. Height and alignment is preserved. No discrete pars defects. Endplate degenerative changes with facet arthropathy throughout the lumbar spine. Degenerative change of the sacroiliac joints bilaterally as well. IMPRESSION: Osteopenia with multilevel degenerative change copyright 2010 [employer]- All Rights Reserved
--- NOTE | 2018-01-25 02:49 | RADIOLOGY REPORT (SQ) ---
EXAM DESCRIPTION: CT HEAD WITHOUT IV CONTRAST COMPLETED DATE/TME: 01/25/2018 01:30 CLINICAL HISTORY: 67 years, Female, fall, head injury COMPARISON: None. TECHNIQUE: 202 Images stored on PACS. All CT scanners at this facility use dose modulation, iterative reconstruction, and/or weight based dosing when appropriate to reduce radiation dose to as low as reasonably achievable (ALARA). [facility]: Dose Right [facility]: CareDose [facility]: Dose Right [facility]: Teradose 4D [facility]: Vega-Chi LIMITATIONS: None. FINDINGS: The globes are intact. The paranasal sinuses and mastoid air cells are unremarkable. No displaced or depressed skull fracture. No intra or extra-axial hemorrhage. CT is limited for evaluation of acute infarct. No CT evidence for large or territorial acute infarct. No mass or midline shift. IMPRESSION: Negative for acute intracranial abnormality TECHNICAL DOCUMENTATION: Quality ID # 436: Final reports with documentation of one or more dose reduction techniques (e.g., Automated exposure control, adjustment of the mA and/or kV according to patient size, use of iterative reconstruction technique) copyright 2011 [employer]- All Rights Reserved
--- NOTE | 2018-01-25 02:53 | RADIOLOGY REPORT (SQ) ---
EXAM DESCRIPTION: CT CERVICAL SPINE WITHOUT IV CONTRAST COMPLETED DATE/TME: 01/25/2018 01:30 CLINICAL HISTORY: 67 years, Female, fall, pain COMPARISON: None. TECHNIQUE: 232 Images stored on PACS. All CT scanners at this facility use dose modulation, iterative reconstruction, and/or weight based dosing when appropriate to reduce radiation dose to as low as reasonably achievable (ALARA). [facility]: Dose Right [facility]: CareDose [facility]: Dose Right [facility]: Teradose 4D [facility]: [employer]Simple LIMITATIONS: None. FINDINGS: Evaluation of spinal canal contents limited due to CT technique. However, vertebral body height is preserved. Equivocal anterolisthesis of C3 with respect to C4, likely secondary to degenerative changes and facet arthropathy. Height and alignment is otherwise preserved. Limited evaluation of extraspinal anatomic structures is unremarkable. Degenerative changes at multiple levels in the cervical spine, greatest at the C5-6 level. IMPRESSION: No CT evidence for acute C-spine abnormality. Multilevel degenerative change, as above. TECHNICAL DOCUMENTATION: Quality ID # 436: Final reports with documentation of one or more dose reduction techniques (e.g., Automated exposure control, adjustment of the mA and/or kV according to patient size, use of iterative reconstruction technique) copyright 2010 [employer]- All Rights Reserved
[2018-01-25] MEDS ORDERED: HYDROCODONE/ACETAMINOPHEN 5-325 MG (6 TAB/ER DISP) PO PRN (03:09)
[2018-01-25] MEDS ORDERED: ONDANSETRON ODT 4 MG TAB (6 TAB/ER DISP) PO PRN (03:16)
== END 2018-01-25 03:22 | disposition home or self-care (01) ==
LOC: ER 01:03
DX: S00.11XA Contusion of right eyelid and periocular area, initial encounter (principal); S60.221A Contusion of right hand, initial encounter; M25.561 Pain in right knee; M54.5 Low back pain; M54.2 Cervicalgia; M25.511 Pain in right shoulder; W01.0XXA Fall on same level from slipping, tripping and stumbling without subsequent striking against object, initial encounter; Y93.89 Activity, other specified; Y92.239 Unspecified place in hospital as the place of occurrence of the external cause; Y99.0 Civilian activity done for income or pay; R29.818 Other symptoms and signs involving the nervous system; M85.88 Other specified disorders of bone density and structure, other site; M47.9 Spondylosis, unspecified; Z98.84 Bariatric surgery status
CPT/HCPCS: 99284; 72110; 73030; 73560; 70450; 72125; S0119

== ENCOUNTER → 2018-02-04 | Outpatient (CLI) | payer OTHER ==
--- NOTE | 2018-02-04 12:48 | RADIOLOGY REPORT (SQ) ---
EXAM DESCRIPTION: MRI HEAD COMBO COMPLETED DATE/TIME: 02/04/2018 12:27 pm REASON FOR STUDY: H57.02 ANISOCORIA H57.02 ANISOCORIA recent fall, anisocoria COMPARISON: None. TECHNIQUE: Multiplanar imaging includes non-contrasted T1, T2, FLAIR, diffusion with ADC map and pos t gadolinium contrast sequences. Additional thin slice images with and without gadolinium contrast a cquired of the orbits. Images stored on PACS. CONTRAST TYPE AND DOSE: 10 mL Dot[employer]. RENAL FUNCTION: GFR > 60. LIMITATIONS: None. FINDINGS: ANATOMY: No anomalies. Normal vascular flow voids. Pituitary fossa normal. CSF SPACES: Normal in size and contour. CEREBRUM: Sulci and gyri normal in size and contour. Scattered periventricular T2/FLAIR hyperintensi ty. No hemorrhage. No edema, masses or mass effect. No enhancing lesions. POSTERIOR FOSSA: No signal alteration. No hemorrhage. No edema, masses or mass effect. Internal dylan tory canals, cerebello-pontine angles, mastoids normal. No enhancing lesions. DIFFUSION IMAGING: Negative for acute or sub-acute infarction. ORBITS: No masses. Globes normal. Extraocular muscles and optic nerves normal. Orbital fat clear. No inflammatory changes or enhancement. PARANASAL SINUSES: No fluid levels. Mucosa normal. OTHER: No other significant finding. IMPRESSION: 1. No acute intracranial pathology. No abnormal intracranial contrast enhancement. 2. Unremarkable MR examination of the orbits and optic nerves. No MR findings to explain anisocoria . 3. Scattered periventricular T2/FLAIR hyperintensity, likely mild small vessel white matter disease. TECHNICAL DOCUMENTATION: JOB ID: [id number] [employer]- All Rights Reserved Reading location - IP/workstation name: [email or web address]
== END ==
LOC: RAD 10:05
PROVIDERS: ATTEND Family Medicine
DX: H57.02 Anisocoria (principal)
CPT/HCPCS: 82565; 70553; A9576

== ENCOUNTER → 2018-04-28 | Outpatient (CLI) | payer MEDICARE, OTHER ==
[2018-04-28 16:00] LABS: ABSOLUTE EOSINOPHILS # (AUTO) 0.1 10^3/uL (0.0-0.6); ABSOLUTE LYMPHOCYTES (AUTO) 1.5 10^3/uL (0.5-4.7); ABSOLUTE MONOCYTES (AUTO) 0.3 10^3/uL (0.1-1.4); ABSOLUTE NEUT (AUTO) 1.9 10^3/uL (1.7-8.2); BASOPHILS % (AUTO) 0.9 % (0-2); EOSINOPHILS % (AUTO) 2.6 % (0-6); HEMATOCRIT 36.9 % (36.0-47.0); HEMOGLOBIN 12.2 g/dL (12.0-15.5); MEAN CORPUSCULAR HEMOGLOBIN 29.2 pg (27.0-33.4); MEAN CORPUSCULAR HGB CONC 33.1 g/dL (32.0-36.0); MEAN CORPUSCULAR VOLUME 88 fl (80-97); MONOCYTES % (AUTO) 7.9 % (3-13); PLATELET COUNT 198 10^3/uL (150-450); RED BLOOD COUNT 4.19 10^6/uL (3.72-5.28); RED CELL DISTRIBUTION WIDTH 13.4 % (11.5-14.0); SEGMENTED NEUTROPHILS % (AUTO) 49.6 % (42-78); TOTAL CELLS COUNTED % (AUTO) 100 %; WHITE BLOOD COUNT 3.8 10^3/uL (4.0-10.5)
[2018-04-28 16:23] LABS: ALANINE AMINOTRANSFERASE 26 U/L (9-52); ALBUMIN 3.8 g/dL (3.5-5.0); ALKALINE PHOSPHATASE 90 U/L (38-126); ANION GAP 6 (5-19); ASPARTATE AMINO TRANSFERASE 23 U/L (14-36); BILIRUBIN,DIRECT 0.2 mg/dL (0.0-0.4); BILIRUBIN,TOTAL 0.3 mg/dL (0.2-1.3); BLOOD UREA NITROGEN 15 mg/dL (7-20); CALCIUM 9.9 mg/dL (8.4-10.2); CARBON DIOXIDE 28 mmol/L (22-30); CHLORIDE 104 mmol/L (98-107); GLUCOSE 84 mg/dL (75-110); LIPASE 66.9 U/L (23-300); POTASSIUM 4.1 mmol/L (3.6-5.0); SODIUM 138.4 mmol/L (137-145)
[2018-04-28 16:27] LABS: AMYLASE < 30 U/L (30-110)
== END ==
LOC: OD 14:07
PROVIDERS: ATTEND Nurse Practitioner
DX: R10.10 Upper abdominal pain, unspecified (principal)
CPT/HCPCS: 36415; 80053; 82150; 83690; 85025

== ENCOUNTER 2018-06-21 20:45 | Emergency (ER) | payer MEDICARE, OTHER ==
[2018-06-21] MEDS ORDERED: EPINEPHRINE INJ/PF 1 MG/1 ML AMPULE ONE (20:50)
[2018-06-21] MEDS ORDERED: FAMOTIDINE INJ/PF 20 MG/2 ML SDV IV ONE ×2 (20:50→21:03)
[2018-06-21] MEDS ORDERED: DIPHENHYDRAMINE HCL 50 MG/ML VIAL ONE (20:50)
[2018-06-21] MEDS ORDERED: METHYLPREDNISOLONE INJ 125 MG/2 ML SDV ONE (20:50)
[2018-06-21] MEDS ORDERED: DIPHENHYDRAMINE HCL 50 MG/ML VIAL IV ONE (21:03)
[2018-06-21] MEDS ORDERED: METHYLPREDNISOLONE INJ 125 MG/2 ML SDV IV ONE (21:03)
[2018-06-21] MEDS ORDERED: EPINEPHRINE INJ/PF 1 MG/1 ML AMPULE IM ONE (21:12)
[2018-06-21] MEDS ORDERED: PROCHLORPERAZINE EDISYLATE INJ 10 MG/2 ML VIAL IV ONE (21:22)
[2018-06-21] MEDS ORDERED: NORMAL SALINE 1000 ML 1,000 ML IV ONE (21:23)
--- NOTE | 2018-06-21 22:09 | ER Document Report ---
ED Allergic Reaction - General Chief Complaint: Allergic Reaction Stated Complaint: POSSIBLE ALLERGIC REACTION Time Seen by Provider: 06/21/18 21:03 Primary Care Provider: LAVINIA LAKE NP [Primary Care Provider] - Follow up tomorrow Mode of Arrival: Ambulatory Information source: Patient Notes: 68-year-old female presented to ED for allergic reaction to the IV contrast dye. She states she was premedicated for her IV contrasted CT with Benadryl at 1:30 AM, 7 AM and 1:30 PM today as well as prednisone. She states states she was supposed to have a CT at 2 PM but instead it was done at 430 at which time the IV contrast infiltrated into her upper arm. She stated just before coming into the emergency room she started having shortness of breath swelling in her throat and change in her voice. She has been given Solu-Medrol 125, Benadryl 50, Pepcid 20, all IV and epinephrine 0.3 mg IM. Patient states she is feeling much better after these medications. She is being monitored on manager sas due to these medications. She states she is able to speak better and is no longer feeling difficulty swallowing. TRAVEL OUTSIDE OF THE [place] IN LAST 30 DAYS: No - HPI Onset: This afternoon Onset/Duration: Gradual - The symptoms became gradually worse and is feeling better now after her medications Quality of pain: Other - Tight in her throat and raspy throat. She states the tightness is all gone now she just has a little bit of a raspy throat and requested ice which I have given her. Severity: Moderate Pain Level: 3 Identified cause: Yes Food exposure: Other - CT contrast Swelling: Face, Lip(s) Trouble swallowing / speaking: Moderate Associated symptoms: None Recent Illness: Sore throat Similar symptoms previously: Yes Recently seen / treated by doctor: Yes - Related Data Allergies/Adverse Reactions: iv contrast Allergy (Uncoded 04/30/17 11:08) Past Medical History - General Information source: Patient - Social History Smoking Status: Never Smoker Cigarette use (# per day): No Chew tobacco use (# tins/day): No Smoking Education Provided: No Frequency of alcohol use: None Drug Abuse: None Occupation: Nurse Lives with: Family Family History: Reviewed & Not Pertinent Patient has suicidal ideation: No Patient has homicidal ideation: No - Past Medical History Cardiac Medical History: Reports: None Pulmonary Medical History: Reports: None EENT Medical History: Reports: None Neurological Medical History: Reports: None Endocrine Medical History: Reports: None Renal/ Medical History: Reports: Other - Precancerous cells in the uterus Malignancy Medical History: Reports: None GI Medical History: Reports: Other - 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 Musculoskeletal Medical History: Reports Hx Arthritis, Reports Hx Musculoskele kelly Trauma Skin Medical History: Reports None Psychiatric Medical History: Reports: None Traumatic Medical History: Reports: None Infectious Medical History: Reports: None Past Surgical History: Reports: Hx Abdominal Surgery - gastric bypass surgeries to sphincter of Oddi and to liver, Hx Adenoidectomy, Hx Cholecystectomy, Hx Hysterectomy, Hx Orthopedic Surgery - Tendon repair leg, Hx Tonsillectomy, Other - Pilonidal cyst - Immunizations Immunizations up to date: Yes Hx Diphtheria, Pertussis, Tetanus Vaccination: Yes Review of Systems - Review of Systems Constitutional: No symptoms reported EENT: Difficulty swallowing, Other - Feeling like throat was swelling, raspy voice, tightness to throat Cardiovascular: No symptoms reported Respiratory: Short of breath, Other - Tetanus to chest Gastrointestinal: No symptoms reported Genitourinary: No symptoms reported Female Genitourinary: No symptoms reported Musculoskeletal: No symptoms reported Skin: No symptoms reported Hematologic/Lymphatic: No symptoms reported Neurological/Psychological: No symptoms reported -: Yes All other systems reviewed and negative Physical Exam - Vital signs Vitals: Pulse Ox 99 06/21/18 21:38 Interpretation: Normal - General General appearance: Appears well, Alert - HEENT Head: Normocephalic, Atraumatic Eyes: Normal Pupils: PERRL - Respiratory Respiratory status: No respiratory distress Chest status: Nontender Breath sounds: Normal Chest palpation: Normal - Cardiovascular Rhythm: Regular Heart sounds: Normal auscultation Murmur: No - Abdominal Inspection: Normal Distension: No distension Bowel sounds: Normal Tenderness: Nontender Organomegaly: No organomegaly - Back Back: Normal, Nontender - Extremities General upper extremity: Normal inspection, Nontender, Normal color, Normal ROM, Normal temperature General lower extremity: Normal inspection, Nontender, Normal color, Normal ROM, Normal temperature, Normal weight bearing. No: Judy's sign - Neurological Neuro grossly intact: Yes Cognition: Normal Orientation: AAOx4 [place] Coma Scale Eye Opening: Spontaneous [place] Coma Scale Verbal: Oriented [place] Coma Scale Motor: Obeys Commands [place] Coma Scale Total: 15 Speech: Normal Motor strength normal: LUE, RUE, LLE, RLE Sensory: Normal - Psychological Associated symptoms: Normal affect, Normal mood - Skin Skin Temperature: Warm Skin Moisture: Dry Skin Color: Normal Course - Re-evaluation Re-evalutation: 06/22/18 00:20 Patient had complete relief of symptoms before discharge. She was treated with epinephrine, Solu-Medrol, Pepcid, and Benadryl. She was discharged home with prescription for prednisone. Patient verbalized understanding and agreement with follow-up and with her primary care doctor tomorrow. Dr. White was consulted several times during her stay and was aware of her signs and symptoms before and after treatment. Patient was discharged home - Vital Signs Vital signs: Temp Pulse Resp BP Pulse Ox 98.1 F 98 16 138/86 H 99 06/21/18 22:00 06/21/18 23:09 06/21/18 23:09 06/21/18 23:09 06/21/18 23:09 Discharge - Discharge Clinical Impression: Allergic reaction CT contrast Condition: Stable Disposition: HOME, SELF-CARE Additional Instructions: ACUTE ALLERGIC REACTION: Your symptoms are due to an allergic reaction. Allergy can cause hives, swelling of the hands, feet, and face, hoarseness, and difficulty swallowing or breathing. It may be due to exposure to medication, animal dander, foods, infection, or insect bites. Medication is a common cause, even when prior use of this same medication caused no problems. Acute treatment may include adrenalin and antihistamines. Usually, the specific allergic agent can't be identified unless repeated episodes occur. Home treatment includes the following: (1) Stop any suspicious medications. This will be discussed with you. (2) Oral antihistamines for the next four to five days. Example, diphenhydramine (Benadryl) every four hours. (3) You may also use cimetidine (Tagamet), ranitidine (Zantac), or famotidine (Pepcid) every four hours if diphenhydramine is not controlling itching and hives. (4) Avoid aspirin until the hives completely disappear. (5) Avoid hot baths or showers until the hives are completely gone. Call the doctor if faintness, difficulty swallowing, tightness in the chest, or wheezing occurs. EPINEPHRINE: An injection of epinephrine (also called adrenalin) is used to treat allergic reactions, asthma, and some other medical conditions. It is a stimulant medication that consticts blood vessels, relaxes smooth muscles such as in the bronchioles of the lung, elevates blood pressure, and increases heart rate. It can temporarily make you feel very nervous and shakey, but it's affects last only a short time, about 15 to 30 minutes at most. STEROID MEDICATION INJECTION: You have been given an injection of medicine of the cortisone/steroid class. This medication is used to control inflammation or allergy. It is often continued as a pill for a short period of time, until the acute process subsides. There are usually no side effects from short-term use of cortisone-like medications. Some persons feel an increased sense of well-being and are not sleepy at bedtime. Long-term use of cortisone medications is best avoided, unless required for a severe condition. If your condition does not remit, or relapses after the course of corticosteroid medication, you should consult your physician. ACID-SUPPRESSING MEDICATION: You have a prescription for medicine which reduces the stomach's secretion of acid. Examples include Zantac, Tagament, and Pepcid. These drugs are often used to allow healing of ulcers or esophagitis. They may be needed to prevent recurrence of ulcers in some patients, or to prevent damage from acid reflux in the esophagus. Take all medication as prescribed, even after the pain is gone. Regular antacids may be added as needed if you have symptoms while taking this medicine. These medications sometimes are prescribed for allergic reactions because they have anti-histaminic effects and relieve the rash and itching of the reaction. There are usually no side effects from this medication. But, in rare cases and particularly in the elderly, serious problems can occur. Contact your doctor if there is fever, rash, hallucinations, confusion, or unusual bruising. Contact your doctor at once if you develop lightheadedness, black or bloody stool, or bloody vomitus. ANTIHISTAMINES: An antihistamine has been given and/or prescribed to control your symptoms. Antihistamines are used for many reasons, including itching, watering eyes, runny nose, allergic swelling, hives, and insect stings. Antihistamines may cause drowsiness, especially with the first dose. Do not operate machinery or drive while under the effects of the medication. Other common side effects include dry mouth and eyes. In older persons, antihistamines can occasionally cause urinary retention, constipation, and trouble focusing the eyes. Do not combine the medication with alcohol, or with any other medication without talking to your doctor. USE OF DIPHENHYDRAMINE: The use of diphenhydramine (Benadryl) has been recommended to control allergic symptoms. The 25 mg strength is available over- the-counter, as well as the elixir. This antihistamine is used for many symptoms. It's useful for itching, watering eyes and nose, allergic swelling, hives, and insect stings. The medication can be repeated four times daily. Age Elixir (12.5 mg/tsp) 25 mg pill 2-3 yr 1/2 tsp 4-8 yr 1 tsp 9-14 yr 2 tsp one tab adult 1-2 tabs Antihistamines may cause drowsiness, especially with the first dose. Do not operate machinery or drive while under the effects of the medication. Do not combine the medication with alcohol, or with any other medication without talking to your doctor. FOLLOW-UP CARE: If you have been referred to a physician for follow-up care, call the physicians office for an appointment as you were instructed or within the next two days. If you experience worsening or a significant change in your symptoms, notify the physician immediately or return to the Emergency Department at any time for re-evaluation. Prescriptions: Prednisone [Deltasone 20 mg Tablet] 3 tab PO DAILY 3 Days tablet Forms: Elevated Blood Pressure Referrals: LAVINIA LAKE NP [Primary Care Provider] - Follow up tomorrow
[2018-06-21 23:10] VITALS: BP 138/86
== END 2018-06-21 23:09 | disposition home or self-care (01) ==
LOC: ER 20:45
DX: R06.02 Shortness of breath (principal); R22.1 Localized swelling, mass and lump, neck; R49.9 Unspecified voice and resonance disorder; T50.8X5A Adverse effect of diagnostic agents, initial encounter; Z98.84 Bariatric surgery status; Z90.49 Acquired absence of other specified parts of digestive tract; Z90.710 Acquired absence of both cervix and uterus; Z91.041 Radiographic dye allergy status
CPT/HCPCS: 99283; 96372; 96374; 96375; J1200; J0171; J2930; J0780; J7030; S0028